=== PATIENT | male | born 1975 | race Caucasian/White ===

== ENCOUNTER 2018-03-22 19:26 | Inpatient (IN) | payer MEDICARE ==
[2018-03-22 19:40] VITALS: BMI 34.9
--- NOTE | 2018-03-22 22:05 | CP.PCM.HP ---
History of Present Illness - History of Present Illness History of Present Illness: PMD: None Chief Complaint: Abnormal vision The patient was seen and examined in the rehab unit [place] [facility] [place]. HPI: The hx was obtained from the patient and after review of the medial records. This is a 43 years old obese male with hx of DM II and HTN who was admitted at the [facility] on 03/19/18 with double and blurring of vision with diagnosed with Acute CVA. He is transferred here at the [facility] for Continued care and Rehabilitation. He referred no weakness. He still some double vision. No headache, dizziness, nausea, vomits, chest pain nor palpitations. No diarrhea. PMH: HTN; HLD; Obesity; DM II PSH: States No surgeries SH: No illegal drug use; Live alone on 1st floor; Occasional Alcohol; Current same day smoker; Partime employment FH: Significant for Diabetes Allergies: KNDA Medication: Reviewed Present on Admission - Present on Admission Any Indicators Present on Admission: No History of DVT/PE: No History of Uncontrolled Diabetes: No Urinary Catheter: No Decubitus Ulcer Present: No Review of Systems - Constitutional Constitutional: absent: Anorexia, Chills, Fever, Headache - EENT Eyes: Blurred Vision, Diplopia, Requires Corrective Lenses Ears: Ear Discharge, Tinnitus Nose/Mouth/Throat: Epistaxis, Nasal Congestion, Nasal Discharge - Cardiovascular Cardiovascular: absent: Chest Pain, Dyspnea, Edema, Orthopnea - Respiratory Respiratory: absent: Cough, Dyspnea, Wheezing, Stridor - Gastrointestinal Gastrointestinal: absent: Abdominal Pain, Constipation, Diarrhea - Genitourinary Genitourinary: absent: Dysuria, Flank Pain, Urinary Frequency - Musculoskeletal Musculoskeletal: absent: Arthralgias, Muscle Cramps, Myalgias - Integumentary Integumentary: absent: Pruritus, Rash, Skin Ulcer, Sores, Striae, Swelling - Neurological Neurological: Focal Weakness. absent: Confusion, Dizziness, Numbness - Psychiatric Psychiatric: absent: Anxiety, Depression, Panic Attacks - Endocrine Endocrine: absent: Palpitations, Polydipsia, Polyphagia, Polyuria - Hematologic/Lymphatic Hematologic: absent: Easy Bleeding, Easy Bruising Past Patient History - Past Medical History & Family History Past Medical History?: Yes - Past Social History Smoking Status: Light Smoker < 10 Cigarettes Daily Chewing Tobacco Use: No Cigar Use: No Alcohol: Social Home Situation {Lives}: Alone - CARDIAC Hx Cardiac Disorders: Yes Hx Hypercholesterolemia: Yes Hx Hypertension: Yes Other/Comment: - Hyperlipidemia - PULMONARY Hx Respiratory Disorders: No - NEUROLOGICAL Hx Neurological Disorder: Yes HX Cerebrovascular Accident: Yes (Diagnosed 03/20/2018) - HEENT Hx HEENT Problems: Yes Other/Comment: - oculomotor nerve palsy - RENAL Hx Chronic Kidney Disease: No - ENDOCRINE/METABOLIC Hx Diabetes Mellitus Type 2: Yes - HEMATOLOGICAL/ONCOLOGICAL Hx Blood Disorders: No - INTEGUMENTARY Hx Dermatological Problems: No - MUSCULOSKELETAL/RHEUMATOLOGICAL Hx Musculoskeletal Disorders: No - GASTROINTESTINAL Hx Gastrointestinal Disorders: No - GENITOURINARY/GYNECOLOGICAL Hx Genitourinary Disorders: No - PSYCHIATRIC Hx Psychophysiologic Disorder: No - SURGICAL HISTORY Hx Surgeries: No - ANESTHESIA Hx Anesthesia: No Meds Allergies/Adverse Reactions: Allergies Allergy/AdvReac Type Severity Reaction Status Date / Time No Known Allergies Allergy Verified 03/22/18 19:40 Physical Exam - Constitutional Appears: No Acute Distress - Head Exam Head Exam: ATRAUMATIC, NORMAL INSPECTION, NORMOCEPHALIC - Eye Exam Eye Exam: EOMI Pupil Exam: NORMAL ACCOMODATION Additional comments: Right 6th nerve Palsy - ENT Exam ENT Exam: Mucous Membranes Moist, Normal Exam, Normal External Ear Exam - Neck Exam Neck exam: Positive for: Full Rom, Normal Inspection. Negative for: Lymphadenopathy, Tenderness - Respiratory Exam Respiratory Exam: Clear to Auscultation Bilateral. absent: Rales, Rhonchi, Wheezes - Cardiovascular Exam Cardiovascular Exam: REGULAR RHYTHM, RRR, +S1, +S2. absent: Gallop - GI/Abdominal Exam GI & Abdominal Exam: Normal Bowel Sounds, Soft. absent: Mass, Organomegaly, Tenderness - Rectal Exam Rectal Exam: Deferred - Extremities Exam Extremities exam: Positive for: full ROM, normal inspection. Negative for: calf tenderness, pedal edema - Back Exam Back exam: NORMAL INSPECTION. absent: CVA tenderness (L), CVA tenderness (R) - Neurological Exam Neurological exam: Alert, Oriented x3, Reflexes Normal Additional comments: 6th nerve Palsy - Psychiatric Exam Psychiatric exam: Normal Affect, Normal Mood - Skin Skin Exam: Dry, Normal Color, Warm Results - Labs Labs: Laboratory Results - last 24 hr 03/22/18 21:22 POC Glucose (mg/dL) 165 H HIV- Non reactive Cholesterol- 273 LDL 188 - Imaging and Cardiology MRI - head Status: Report reviewed by me Additional comment: 03/20/18 Acute left Thalamic/Midbrain lacunar infarct. Non specific white matter T2 hyperintensities MRA Head Additional comment: 03/20/18 No demonstration of large vessel occlusion, high grade stenosis of large aneurysm. Question of mild right P2 segment narrowing. Assessment & Plan - Assessment and Plan (Free Text) Plan: 43 years old obese male with hx of DM II and HTN who was admitted at the [facility] on 03/19/18 with double and blurring of vision with diagnosed with Acute CVA. He is transferred here at the [facility] for Continued care and Rehabilitation. He referred no weakness. He still some double and blurring vision. #. Acute CVA with sixth nerve Palsy - Consult Dr Nowak the Pattern Storage Clerk - OT/PT - ASA - Atorvastatin #. DM II with Hyperglycemia - HbA1c - 13.1 on 03/22/18 - Levemir 12units Q12Hrs - Lispro Insulin sliding scale according to Accucheck ACHS - Lisinopril #. HLD - Atorvastatin #. DVT prophylaxis with Lovenox #. Code Status: Full - Date & Time Date: 03/22/18 Time: 22:05
[2018-03-22] MEDS: Insulin Detemir 100 Units/ml Inj SC SCH (22:27)
[2018-03-23 06:31] LABS: PROTHROMBIN TIME 11.6 Seconds (9.8-13.1)
[2018-03-23 06:33] LABS: BASO % 0.8 % (0.0-2.0); EOS # 0.1 K/uL (0.0-0.7); EOS % 1.3 % (0.0-4.0); HEMOGLOBIN 13.6 g/dL (12.0-18.0); LYMPH # 2.6 K/uL (1.0-4.3); MEAN CELL VOLUME 83.1 fl (80.0-94.0); MEAN CORPUSCULAR HEMOGLOBIN 26.5 pg (27.0-31.0); MEAN CORPUSCULAR HGB CONC 31.9 g/dL (33.0-37.0); MEAN PLATELET VOLUME 7.6 fl (7.2-11.7); MONO # 0.3 K/uL (0.0-0.8); MONO % 5.7 % (0.0-10.0); NEUT # 2.9 K/uL (1.8-7.0); NEUT % 49.2 % (50.0-75.0); NRBC % 0.2 % (0.0-0.0); PARTIAL THROMBOPLASTIN TIME 37.6 Seconds (25.6-37.1); RBC 5.12 Mil/uL (4.40-5.90); RED CELL DISTRIBUTION WIDTH 13.6 % (11.5-14.5); WHITE BLOOD COUNT 5.9 K/uL (4.8-10.8)
[2018-03-23 06:48] LABS: BLOOD UREA NITROGEN 8 mg/dl (9-20); CALCIUM 9.8 mg/dL (8.4-10.2); GFR NON-AFRICAN AMERICAN > 60
[2018-03-23] MEDS: Insulin Lispro (humaLOG) 100 Units/ml Inj SC SCH ×4 (07:11→21:27)
[2018-03-23] MEDS: Insulin Detemir 100 Units/ml Inj SC SCH ×2 (09:08→21:53)
[2018-03-23] MEDS: Enoxaparin 40 mg Syringe SC SCH (12:51)
--- NOTE | 2018-03-23 17:41 | PCM.OPOC ---
Physiatry Overall Plan of Care - Overall Plan of Care Estimated Length of Stay in Weeks: 2 Rehab Impairment: Mobility, Gait, Cognition, Balance, Coordination Etiologic Diagnosis: Cerebrovascular Accident Rehab/Medical Prognosis: Fair - Anticipated Interventions Physical Therapy:: Yes Occupational Therapy:: Yes Speech Therapy:: Yes Recreational Therapy:: Yes - Therapy Goals Bed Mobility: Supervision Ambulation: Supervision Functional Positional Changes:: Supervision - Discharge Plan Identification of Barriers to Discharge: Home Situation Discharge Destination: Home
--- NOTE | 2018-03-23 17:44 | CP.PCM.CON ---
History of Present Illness - History of Present Illness History of Present Illness: Dr Nowak PMR consultation on Chris Oneill, born 1975 who has been admitted to [facility] for acute inpatient rehabilitation following a left CVA with gait disorder and dizziness and headache. It had been present for a couple of weeks prior to final going to the ER at [facility] [place]. Review of Systems - Constitutional Constitutional: absent: Chills, Excessive Sweating - EENT Eyes: Blurred Vision, Change in Vision Ears: absent: Ear Discharge, Ear Pain Nose/Mouth/Throat: absent: Nasal Congestion - Cardiovascular Cardiovascular: absent: Chest Pain, Dyspnea - Respiratory Respiratory: absent: Dyspnea - Gastrointestinal Gastrointestinal: absent: Belching, Constipation - Genitourinary Genitourinary: absent: Difficulty Urinating - Musculoskeletal Musculoskeletal: absent: Arthralgias - Integumentary Integumentary: absent: Bleeding Lesions - Neurological Neurological: absent: Abnormal Hearing, Abnormal Movements - Psychiatric Psychiatric: Depression. absent: Anxiety Past Patient History - Past Medical History & Family History Past Medical History?: Yes - Past Social History Smoking Status: Light Smoker < 10 Cigarettes Daily Chewing Tobacco Use: No Cigar Use: No Alcohol: Social Home Situation {Lives}: Alone - CARDIAC Hx Cardiac Disorders: Yes Hx Hypercholesterolemia: Yes Hx Hypertension: Yes Other/Comment: - Hyperlipidemia - PULMONARY Hx Respiratory Disorders: No - NEUROLOGICAL Hx Neurological Disorder: Yes HX Cerebrovascular Accident: Yes (Diagnosed 03/20/2018) - HEENT Hx HEENT Problems: Yes Other/Comment: - oculomotor nerve palsy - RENAL Hx Chronic Kidney Disease: No - ENDOCRINE/METABOLIC Hx Diabetes Mellitus Type 2: Yes - HEMATOLOGICAL/ONCOLOGICAL Hx Blood Disorders: No - INTEGUMENTARY Hx Dermatological Problems: No - MUSCULOSKELETAL/RHEUMATOLOGICAL Hx Musculoskeletal Disorders: No - GASTROINTESTINAL Hx Gastrointestinal Disorders: No - GENITOURINARY/GYNECOLOGICAL Hx Genitourinary Disorders: No - PSYCHIATRIC Hx Psychophysiologic Disorder: No - SURGICAL HISTORY Hx Surgeries: No - ANESTHESIA Hx Anesthesia: No Meds Allergies/Adverse Reactions: Allergies Allergy/AdvReac Type Severity Reaction Status Date / Time No Known Allergies Allergy Verified 03/22/18 19:40 - Medications Medications: Current Medications Aspirin (Aspirin Chewable) 81 mg PO DAILY [facility] Last Admin: 03/23/18 09:05 Dose: 81 mg Atorvastatin Calcium (Lipitor) 80 mg PO [facility] Enoxaparin Sodium (Lovenox) 40 mg SC DAILY [facility]; Protocol Last Admin: 03/23/18 12:51 Dose: 40 mg Insulin Detemir (Levemir) 12 units SC Q12 [facility] Last Admin: 03/23/18 09:08 Dose: 12 units Insulin Human Lispro (Humalog) 0 units SC ACHS [facility]; Protocol Last Admin: 03/23/18 16:13 Dose: 1 unit Lisinopril (Zestril) 2.5 mg PO DAILY [facility] Last Admin: 03/23/18 09:05 Dose: 2.5 mg Metformin HCl (Glucophage) 500 mg PO ACBD [facility] Last Admin: 03/23/18 16:11 Dose: 500 mg Physical Exam - Constitutional Appears: No Acute Distress, Other (not very compliant with my examination now) - Head Exam Head Exam: NORMOCEPHALIC - ENT Exam ENT Exam: Mucous Membranes Moist - Respiratory Exam Respiratory Exam: NORMAL BREATHING PATTERN. absent: Respiratory Distress - Cardiovascular Exam Cardiovascular Exam: REGULAR RHYTHM - GI/Abdominal Exam GI & Abdominal Exam: absent: Firm - Extremities Exam Extremities exam: Negative for: calf tenderness - Neurological Exam Neurological exam: Alert, Oriented x3 - Psychiatric Exam Psychiatric exam: Flat Affect - Skin Skin Exam: Warm Results - Vital Signs Recent Vital Signs: Last Vital Signs Temp 97.7 F 03/22/18 19:30 Pulse 88 03/23/18 09:05 Resp 20 03/22/18 20:30 BP 120/80 03/23/18 09:05 Pulse Ox 97 03/23/18 08:43 - Labs Result Diagrams: 03/23/18 05:20 03/23/18 05:20 Labs: Laboratory Results - last 24 hr 03/22/18 03/23/18 03/23/18 21:22 05:20 05:20 WBC 5.9 RBC 5.12 Hgb 13.6 Hct 42.6 MCV 83.1 MCH 26.5 L MCHC 31.9 L RDW 13.6 Plt Count 267 MPV 7.6 Neut % (Auto) 49.2 L Lymph % (Auto) 43.0 H [place] % (Auto) 5.7 Eos % (Auto) 1.3 Baso % (Auto) 0.8 Neut # (Auto) 2.9 Lymph # (Auto) 2.6 [place] # (Auto) 0.3 Eos # (Auto) 0.1 Baso # (Auto) 0.0 PT 11.6 INR 1.0 APTT 37.6 H Sodium Potassium Chloride Carbon Dioxide Anion Gap BUN Creatinine Est GFR ( Amer) Est GFR (Non-Af Amer) POC Glucose (mg/dL) 165 H Random Glucose Calcium 03/23/18 03/23/18 03/23/18 05:20 06:16 12:30 WBC RBC Hgb Hct MCV MCH MCHC RDW Plt Count MPV Neut % (Auto) Lymph % (Auto) [place] % (Auto) Eos % (Auto) Baso % (Auto) Neut # (Auto) Lymph # (Auto) [place] # (Auto) Eos # (Auto) Baso # (Auto) PT INR APTT Sodium 140 Potassium 4.3 Chloride 106 Carbon Dioxide 26 Anion Gap 12 BUN 8 L Creatinine 0.8 Est GFR ( Amer) > 60 Est GFR (Non-Af Amer) > 60 POC Glucose (mg/dL) 153 H 216 H Random Glucose 165 H Calcium 9.8 03/23/18 16:00 WBC RBC Hgb Hct MCV MCH MCHC RDW Plt Count MPV Neut % (Auto) Lymph % (Auto) [place] % (Auto) Eos % (Auto) Baso % (Auto) Neut # (Auto) Lymph # (Auto) [place] # (Auto) Eos # (Auto) Baso # (Auto) PT INR APTT Sodium Potassium Chloride Carbon Dioxide Anion Gap BUN Creatinine Est GFR ( Amer) Est GFR (Non-Af Amer) POC Glucose (mg/dL) 154 H Random Glucose Calcium Assessment & Plan - Assessment and Plan (Free Text) Assessment: PT/OT to continue to help increase functional independence Team conference for d/c planning Pain: controlled Vascular: no evidence of DVT GI: No evidence of constipation or diarrhea Patient is an excellent acute rehabilitation candidate and will have focused PT, OT and recreational therapy to help facilitate a safe and appropriate d/c plan
[2018-03-23] MEDS ORDERED: Insulin Detemir 100 Units/ml Inj SC SCH (22:00)
[2018-03-24] MEDS: Insulin Lispro (humaLOG) 100 Units/ml Inj SC SCH ×4 (06:35→21:19)
[2018-03-24] MEDS: Insulin Detemir 100 Units/ml Inj SC SCH ×2 (08:50→21:15)
[2018-03-24] MEDS: Enoxaparin 40 mg Syringe SC SCH (08:50)
--- NOTE | 2018-03-24 09:14 | CP.PCM.CON ---
History of Present Illness - History of Present Illness History of Present Illness: Podiatry Consult Note for Dr. Skaggs 43 yo male patient, with PMHx of DM, HTN, and CVA, seen and evaluated for painful mycotic toenails. Patient is resting comfortably in bed and in NAD. Patient states that they are painful when he walks and he is unable to cut them himself due to their thickness and recent stroke. Patient denies any other pedal complaints at this time. Denies N/V/F/SOB/CP. PMHx: DM, HTN, CVA PSHx: denies Social: Denies tobacco and illicit drug use ALL: NKDA Review of Systems - Review of Systems Review of Systems: As per HPI Past Patient History - Past Medical History & Family History Past Medical History?: Yes - Past Social History Smoking Status: Light Smoker < 10 Cigarettes Daily Chewing Tobacco Use: No Cigar Use: No Alcohol: Social Home Situation {Lives}: Alone - CARDIAC Hx Cardiac Disorders: Yes Hx Hypercholesterolemia: Yes Hx Hypertension: Yes Other/Comment: - Hyperlipidemia - PULMONARY Hx Respiratory Disorders: No - NEUROLOGICAL Hx Neurological Disorder: Yes HX Cerebrovascular Accident: Yes (Diagnosed 03/20/2018) - HEENT Hx HEENT Problems: Yes Other/Comment: - oculomotor nerve palsy - RENAL Hx Chronic Kidney Disease: No - ENDOCRINE/METABOLIC Hx Diabetes Mellitus Type 2: Yes - HEMATOLOGICAL/ONCOLOGICAL Hx Blood Disorders: No - INTEGUMENTARY Hx Dermatological Problems: No - MUSCULOSKELETAL/RHEUMATOLOGICAL Hx Musculoskeletal Disorders: No - GASTROINTESTINAL Hx Gastrointestinal Disorders: No - GENITOURINARY/GYNECOLOGICAL Hx Genitourinary Disorders: No - PSYCHIATRIC Hx Psychophysiologic Disorder: No - SURGICAL HISTORY Hx Surgeries: No - ANESTHESIA Hx Anesthesia: No Meds Allergies/Adverse Reactions: Allergies Allergy/AdvReac Type Severity Reaction Status Date / Time No Known Allergies Allergy Verified 03/22/18 19:40 - Medications Medications: Current Medications Aspirin (Aspirin Chewable) 81 mg PO DAILY [facility] Last Admin: 03/24/18 08:50 Dose: 81 mg Atorvastatin Calcium (Lipitor) 80 mg PO HS [facility] Last Admin: 03/23/18 21:35 Dose: 80 mg Enoxaparin Sodium (Lovenox) 40 mg SC DAILY [facility]; Protocol Last Admin: 03/24/18 08:50 Dose: 40 mg Insulin Detemir (Levemir) 12 units SC Q12 [facility] Last Admin: 03/24/18 08:50 Dose: 12 units Insulin Human Lispro (Humalog) 0 units SC ACHS [facility]; Protocol Last Admin: 03/24/18 06:35 Dose: Not Given Lisinopril (Zestril) 2.5 mg PO DAILY [facility] Last Admin: 03/24/18 08:50 Dose: 2.5 mg Metformin HCl (Glucophage) 500 mg PO ACBD [facility] Last Admin: 03/24/18 07:11 Dose: 500 mg Physical Exam - Constitutional Appears: Non-toxic, No Acute Distress - ENT Exam ENT Exam: Mucous Membranes Moist - Extremities Exam Additional comments: Vascular: DP/PT 1/4, CFT < 3 seconds, TG warm to warm, no edema present Ortho: MMT 5/5, hammertoe deformity L digits 1-5 Neuro: Gross sensation intact, protective sensation diminished Derm: Elongated, dystrophic, mycotic nails x10. No open lesions, no erythema, no clinical signs of infection - Neurological Exam Neurological exam: Alert, Oriented x3 - Psychiatric Exam Psychiatric exam: Normal Affect, Normal Mood Results - Vital Signs Recent Vital Signs: Last Vital Signs Temp 97.8 F 03/24/18 07:40 Pulse 89 03/24/18 08:50 Resp 20 03/24/18 07:40 BP 126/93 H 03/24/18 08:50 Pulse Ox 95 03/24/18 07:40 - Labs Result Diagrams: 03/23/18 05:20 03/23/18 05:20 Labs: Laboratory Results - last 24 hr 03/23/18 03/23/18 03/23/18 12:30 16:00 21:27 POC Glucose (mg/dL) 216 H 154 H 150 H 03/24/18 06:35 POC Glucose (mg/dL) 146 H Assessment & Plan - Assessment and Plan (Free Text) Assessment: 43 yo male patient, with PMHx of DM and CVA, seen and evaluated for painful mycotic toenails. Plan: Patient seen and evaluated Discussed with Dr. Sharifa Barnett, VSS Patients nails debrided x10 with a large nail nipper without incident Discussed with patient the importance of diabetic foot risk assessments and to follow up with Dr. Skaggs with any podiatric concerns as an outpatient Podiatry to sign off at this time, please reconsult as needed Thank you for the consult - Date & Time Date: 03/24/18 Time: 09:20
[2018-03-25] MEDS: Insulin Lispro (humaLOG) 100 Units/ml Inj SC SCH ×4 (06:43→22:11)
[2018-03-25] MEDS: Insulin Detemir 100 Units/ml Inj SC SCH ×2 (09:07→22:06)
[2018-03-25] MEDS: Enoxaparin 40 mg Syringe SC SCH (09:08)
[2018-03-26 06:34] LABS: HEMOGLOBIN 13.4 g/dL (12.0-18.0); MEAN CELL VOLUME 82.2 fl (80.0-94.0); MEAN CORPUSCULAR HEMOGLOBIN 26.1 pg (27.0-31.0); MEAN CORPUSCULAR HGB CONC 31.8 g/dL (33.0-37.0); RBC 5.13 Mil/uL (4.40-5.90); RED CELL DISTRIBUTION WIDTH 13.4 % (11.5-14.5); WHITE BLOOD COUNT 7.4 K/uL (4.8-10.8)
[2018-03-26 06:47] LABS: BLOOD UREA NITROGEN 11 mg/dl (9-20); CALCIUM 9.5 mg/dL (8.4-10.2); GFR NON-AFRICAN AMERICAN > 60
[2018-03-26] MEDS: Insulin Lispro (humaLOG) 100 Units/ml Inj SC SCH ×4 (07:44→21:00)
[2018-03-26] MEDS: Enoxaparin 40 mg Syringe SC SCH (08:56)
[2018-03-26] MEDS: Insulin Detemir 100 Units/ml Inj SC SCH ×2 (08:57→20:59)
--- NOTE | 2018-03-26 09:42 | CP.PCM.PN ---
Subjective - Date & Time of Evaluation Date of Evaluation: 03/26/18 Time of Evaluation: 09:42 - Subjective Subjective: complains - still with blurry vision Objective - Vital Signs/Intake and Output Vital Signs (last 24 hours): Temp Pulse Resp BP Pulse Ox 98.1 F 83 18 120/84 100 03/26/18 09:09 03/26/18 09:09 03/26/18 09:09 03/26/18 09:09 03/26/18 09:09 - Medications Medications: Current Medications Aspirin (Aspirin Chewable) 81 mg PO DAILY [facility] Last Admin: 03/26/18 08:52 Dose: 81 mg Atorvastatin Calcium (Lipitor) 80 mg PO HS [facility] Last Admin: 03/25/18 22:01 Dose: 80 mg Enoxaparin Sodium (Lovenox) 40 mg SC DAILY [facility]; Protocol Last Admin: 03/26/18 08:56 Dose: 40 mg Insulin Detemir (Levemir) 12 units SC Q12 [facility] Last Admin: 03/26/18 08:57 Dose: 12 units Insulin Human Lispro (Humalog) 0 units SC ACHS [facility]; Protocol Last Admin: 03/26/18 07:44 Dose: Not Given Lisinopril (Zestril) 2.5 mg PO DAILY [facility] Last Admin: 03/26/18 08:56 Dose: 2.5 mg Metformin HCl (Glucophage) 500 mg PO ACBD [facility] Last Admin: 03/26/18 08:52 Dose: 500 mg - Labs Labs: 03/26/18 05:25 03/26/18 05:25 PT 11.6 Seconds (9.8-13.1) 03/23/18 05:20 INR 1.0 03/23/18 05:20 APTT 37.6 Seconds (25.6-37.1) H 03/23/18 05:20 - Constitutional Appears: Well, Non-toxic, No Acute Distress - Head Exam Head Exam: NORMAL INSPECTION - Eye Exam Eye Exam: EOMI, Normal appearance - ENT Exam ENT Exam: Mucous Membranes Moist - Respiratory Exam Respiratory Exam: Clear to Ausculation Bilateral, NORMAL BREATHING PATTERN - Cardiovascular Exam Cardiovascular Exam: REGULAR RHYTHM, +S1, +S2 - Extremities Exam Additional comments: on wheel chair - Neurological Exam Neurological Exam: Alert, Awake, Oriented x3 Assessment and Plan - Assessment and Plan (Free Text) Assessment: 43 years old obese male with hx of DM II and HTN who was admitted at the [facility] on 03/19/18 with double and blurring of vision with diagnosed with Acute CVA. He is transferred here at the [facility] for Continued care and Rehabilitation. He referred no weakness. He still some double and blurring vision. #. Acute CVA with sixth nerve Palsy - Consult Dr Nowak the Post Acute Care Nurse - OT/PT - ASA - Atorvastatin #. DM II with Hyperglycemia - HbA1c - 13.1 on 03/22/18 - Levemir 12units Q12Hrs - Lispro Insulin sliding scale according to Accucheck ACHS - Lisinopril #. HLD - Atorvastatin #. DVT prophylaxis with Lovenox
[2018-03-27] MEDS: Insulin Lispro (humaLOG) 100 Units/ml Inj SC SCH ×4 (08:22→21:03)
[2018-03-27] MEDS: Enoxaparin 40 mg Syringe SC SCH (08:22)
[2018-03-27] MEDS: Insulin Detemir 100 Units/ml Inj SC SCH ×2 (08:24→21:09)
--- NOTE | 2018-03-27 13:11 | PCM.PSYTMC ---
Acute Rehab Team Conference - - Vital Signs: Vital Signs (Last 8 Hours): Vital Signs 03/27/18 03/27/18 08:23 08:57 Temperature 98 F Pulse Rate 78 72 Respiratory 20 Rate Blood Pressure 144/78 144/80 O2 Sat by Pulse 98 Oximetry Pain: 0 - Toileting: Toileting: Contact Guard - Bladder Management: Bladder Pattern: Normal Voiding Method: Toilet Bladder Management: Contact Guard - Transfers: Transfers: Contact Guard - Provider: Registered Nurse:: Carmine Robles Physical Therapy - Bed Mobility Bed Mobility: Contact Guard - Transfers Wheelchair to Mat: Contact Guard Sit to Stand: Contact Guard - Ambulation Level of Assistance: Contact Guard, Minimal Assistance Distance (ft.): 150 Assistive Devices: N/A - Standing Balance Static Stand: Contact Guard Assist - Pain Pain (assessed during therapy session): 0 - Insight/Carryover Insight/Carryover: Good - Patient/Family Education Comment: CVA recovery, safety, POC - Assessment/Plan Assessment: Pt currently requires CGA for bed mobility, CGA for transfers, CGA/min A for ambulation, and CGA for stair negotiation. Pt with occasional LOB to R side - Goals Timeframe: 2 weeks Goals: Sit < > supine mod I. Sit < > stand mod I. Pt will ambulate 300 ft mod I without AD. Pt will ascend/descend flight of stairs mod I - Provider Physical Therapist:: Sanam Brand License Number:: [id number] Occupational Therapy - Arousal/Attention/Orientation Level of Consciousness: Awake, Alert, Forgetful Patient Orientation: Person, Place, Time - ADL/IADL Self Feeding: Set-up Help Grooming: Set-up Help Bathing-Upper Ext: Supervision Bathing-Lower Ext: Supervision Dressing-Upper Ext: Supervision Dressing-Lower Ext: Supervision - Sitting Balance Static Sitting: Supervision Dynamic Sitting: Requires supervision - Transfers Wheelchair to Bed Transfers: Supervision Toilet Transfers: Supervision - Wheelchair Management Level of Assistance: Independent Distance (ft.): 150 - Upper Extremity Status Right Upper Extremity Comment: WFL Left Upper Extremity Comment: WFL - Pain Pain (assessed during therapy session): 0 - Insight/Carryover Insight/Carryover: Fair - Patient/Family Education Comment: CVA recovey, use of callbell, therapy schedule, - Assessment/Plan Assessment: Patient is a 43 yo male presenting to acute rehab s/p acute CVA. Patient presenting with impaired activity tolerance, impaired dynamic standing balance/unsteadiness on feet/lack of coordination, impaired knowledge of compensatory/adaptive techniques, impaired safety awareness impacting pt's ability to complete his ADL routine safely and effectively. patient currently able to complete UB ADLs with supervision, lb ADLS with supervision , transfers/mobility with supervision with intermittent vcs for safetly. recommend cont skilled OT services 5-6x/week as per plan of care. - Goals Timeframe: 1 week - Provider Occupational Therapist:: Nitza Kamara License Number: [id number] Recreational Therapy - Participation Participation: Participates in Individual and/or Group Sessions - Attendance Attendance: 3-5 times per week - Activities Leisure Activities: Cards and Games - Socialization Level of Socialization: Initiates/interacts freely with care givers and peer - Diversional Time Diversional Time: television, listening to music - Assessment Assessment/Plan: Pt is agreeable to participate in recreation therapy sessions following encouragement. Pt was oriented to tapple task and presented with decrease recalling facts on demand and pt reported visual impairments with the R eye. Pt requires verbal cues for redirection and requires education 2' poor insight. Pt will benefit from leisure education and stroke education throughout stay on unit. Will continue to encourage. Problems Currently Limiting Participation: decrease leisure awareness level, visual impairments as pt reports visual cut with vision in R eye Goals and Time Frame: decrease leisure awareness level, visual impairments as pt reports visual cut with vision in R eye - Provider Therapist: Jagruti Mora Nutrition - Current Diet Current Diet/Supplement/Feedings: Moderate consistent CHO heart healthy diet - Appetite Percent Meal Consumed: 75-100% - Assessment/Goals/Time Frame Assessments/Goals/Time Frame: Pt at moderate nutritional risk. goals: 1. Pt to consume 75-100% of meals. 2. Blood glucoses to be between 70-180 mg/dl. Follow-up due on 03/30/2018 - Provider Provider: Khadijah Rolon Case Management - Psychosocial Assessment Support Systems: Blanca Engel (julest) - Psychological Interventions/Needs: Patient is alert and oriented x3 and able to verbalize needs. Discharge Concerns: Patient lives alone with limited support during the day. Patient/Family Meeting: CM met with patient and rehab team. Intervention/Goal/Outcome: 1. Itermittent supervision. 2. PLAN- home with VNS - refer to [facility]. 3. DME needs. 4. F/U appointments. 5. Caregiver training?. 6. continued emotional support. 7. Tentative discharge date: 04/01/18 - Discharge Plan Discharge Plan: Home with services Home Services: [facility] - Provider Provider: Isabel Young License Number: [id number] Rehabilitation Plan - Treatment Plan Treatment Plan: Physical Therapy, Occupational Therapy, Dietary, Patient/Family Education - Discharge Plan Estimated Date of Discharge: 04/02/18 Discharge to: Home
--- NOTE | 2018-03-27 13:31 | CP.PCM.PN ---
Subjective - Date & Time of Evaluation Date of Evaluation: 03/27/18 Time of Evaluation: 13:30 - Subjective Subjective: Patient seen in the room denies sob/cp not too interested in my presence and wanted me to move out of the way so he could watch TV impulsive in therapy and this was discussed in detail continue current care Objective - Vital Signs/Intake and Output Vital Signs (last 24 hours): Temp Pulse Resp BP Pulse Ox 98 F 77 20 144/80 98 03/27/18 08:57 03/27/18 08:57 03/27/18 08:57 03/27/18 08:57 03/27/18 08:57 - Medications Medications: Current Medications Aspirin (Aspirin Chewable) 81 mg PO DAILY [facility] Last Admin: 03/27/18 08:22 Dose: 81 mg Atorvastatin Calcium (Lipitor) 80 mg PO HS [facility] Last Admin: 03/26/18 21:01 Dose: 80 mg Enoxaparin Sodium (Lovenox) 40 mg SC DAILY [facility]; Protocol Last Admin: 03/27/18 08:22 Dose: 40 mg Insulin Detemir (Levemir) 12 units SC Q12 [facility] Last Admin: 03/27/18 08:24 Dose: 12 units Insulin Human Lispro (Humalog) 0 units SC ACHS [facility]; Protocol Last Admin: 03/27/18 12:28 Dose: Not Given Lisinopril (Zestril) 2.5 mg PO DAILY [facility] Last Admin: 03/27/18 08:23 Dose: 2.5 mg Metformin HCl (Glucophage) 500 mg PO ACBD [facility] Last Admin: 03/27/18 08:21 Dose: 500 mg - Labs Labs: 03/26/18 05:25 03/26/18 05:25 PT 11.6 Seconds (9.8-13.1) 03/23/18 05:20 INR 1.0 03/23/18 05:20 APTT 37.6 Seconds (25.6-37.1) H 03/23/18 05:20
[2018-03-28] MEDS: Insulin Lispro (humaLOG) 100 Units/ml Inj SC SCH ×4 (06:49→21:36)
[2018-03-28] MEDS: Insulin Detemir 100 Units/ml Inj SC SCH ×2 (09:02→21:33)
[2018-03-28] MEDS: Enoxaparin 40 mg Syringe SC SCH (09:04)
--- NOTE | 2018-03-28 18:07 | CP.PCM.PN ---
Subjective - Date & Time of Evaluation Date of Evaluation: 03/28/18 Time of Evaluation: 13:20 - Subjective Subjective: Patient seen and examined. De nied any other complaint aside from persistent blurring of vision. Objective - Vital Signs/Intake and Output Vital Signs (last 24 hours): Temp Pulse Resp BP Pulse Ox 97.3 F L 86 19 114/84 98 03/28/18 10:00 03/28/18 10:00 03/28/18 10:00 03/28/18 10:00 03/28/18 10:00 - Medications Medications: Current Medications Aspirin (Aspirin Chewable) 81 mg PO DAILY [facility] Last Admin: 03/28/18 09:02 Dose: 81 mg Atorvastatin Calcium (Lipitor) 80 mg PO HS [facility] Last Admin: 03/27/18 21:09 Dose: 80 mg Enoxaparin Sodium (Lovenox) 40 mg SC DAILY [facility]; Protocol Last Admin: 03/28/18 09:04 Dose: 40 mg Insulin Detemir (Levemir) 12 units SC Q12 [facility] Last Admin: 03/28/18 09:02 Dose: 12 units Insulin Human Lispro (Humalog) 0 units SC ACHS [facility]; Protocol Last Admin: 03/28/18 16:23 Dose: Not Given Lisinopril (Zestril) 2.5 mg PO DAILY [facility] Last Admin: 03/28/18 09:09 Dose: 2.5 mg Metformin HCl (Glucophage) 500 mg PO ACBD [facility] Last Admin: 03/28/18 16:58 Dose: 500 mg - Labs Labs: 03/26/18 05:25 03/26/18 05:25 PT 11.6 Seconds (9.8-13.1) 03/23/18 05:20 INR 1.0 03/23/18 05:20 APTT 37.6 Seconds (25.6-37.1) H 03/23/18 05:20 - Constitutional Appears: No Acute Distress - Head Exam Head Exam: ATRAUMATIC - Eye Exam Eye Exam: absent: Scleral icterus - ENT Exam ENT Exam: Mucous Membranes Moist - Neck Exam Neck Exam: absent: Meningismus - Respiratory Exam Respiratory Exam: absent: Rales, Rhonchi, Wheezes, Respiratory Distress - Cardiovascular Exam Cardiovascular Exam: REGULAR RHYTHM, +S1, +S2 - GI/Abdominal Exam GI & Abdominal Exam: Soft. absent: Tenderness - Rectal Exam Rectal Exam: Deferred - Neurological Exam Neurological Exam: Alert, Oriented x3 - Psychiatric Exam Psychiatric exam: Normal Affect - Skin Skin Exam: Dry, Intact Assessment and Plan - Assessment and Plan (Free Text) Assessment: 43 yo obese male with history of DM II and HTN was admitted at the [facility] on 03/19/18 with double and blurring of vision and was diagnosed with Acute CVA when CT scan of the head showed acute infarct on left thalamic and midbrain. He was transferred to [facility] for continued care and rehabilitation. 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 DM II BS relatively controlled Levemir 12units Q12Hrs Accucheck ACHS 3. HTN BP stable continue Lisinopril 4. DVT prophylaxis on Lovenox
[2018-03-29] MEDS: Insulin Lispro (humaLOG) 100 Units/ml Inj SC SCH ×4 (07:17→21:14)
[2018-03-29 08:10] LABS: HEMOGLOBIN 12.6 g/dL (12.0-18.0); MEAN CORPUSCULAR HGB CONC 31.3 g/dL (33.0-37.0); RBC 4.86 Mil/uL (4.40-5.90); RED CELL DISTRIBUTION WIDTH 13.5 % (11.5-14.5); WHITE BLOOD COUNT 6.2 K/uL (4.8-10.8)
[2018-03-29] MEDS: Insulin Detemir 100 Units/ml Inj SC SCH ×2 (08:20→21:14)
[2018-03-29] MEDS: Enoxaparin 40 mg Syringe SC SCH (08:20)
[2018-03-29 09:16] LABS: BLOOD UREA NITROGEN 14 mg/dl (9-20); CALCIUM 9.6 mg/dL (8.4-10.2); GFR NON-AFRICAN AMERICAN > 60
[2018-03-30] MEDS: Insulin Lispro (humaLOG) 100 Units/ml Inj SC SCH ×4 (06:30→21:00)
[2018-03-30] MEDS: Insulin Detemir 100 Units/ml Inj SC SCH ×2 (09:51→21:08)
[2018-03-30] MEDS: Enoxaparin 40 mg Syringe SC SCH (09:52)
--- NOTE | 2018-03-30 14:39 | CP.PCM.PN ---
Subjective - Date & Time of Evaluation Date of Evaluation: 03/30/18 Time of Evaluation: 14:38 - Subjective Subjective: Patient seen on way to therapy NAD no cyanosis or jaundice chatting with staff about Antony Pena. continue current care Objective - Vital Signs/Intake and Output Vital Signs (last 24 hours): Temp Pulse Resp BP Pulse Ox 97.2 F L 79 20 130/80 97 03/29/18 21:00 03/30/18 09:52 03/29/18 21:00 03/30/18 09:52 03/29/18 21:00 - Medications Medications: Current Medications Aspirin (Aspirin Chewable) 81 mg PO DAILY [facility] Last Admin: 03/30/18 09:50 Dose: 81 mg Atorvastatin Calcium (Lipitor) 80 mg PO HS [facility] Last Admin: 03/29/18 21:13 Dose: 80 mg Insulin Detemir (Levemir) 12 units SC Q12 [facility] Last Admin: 03/30/18 09:51 Dose: 12 units Insulin Human Lispro (Humalog) 0 units SC ACHS [facility]; Protocol Last Admin: 03/30/18 06:30 Dose: Not Given Lisinopril (Zestril) 2.5 mg PO DAILY [facility] Last Admin: 03/30/18 09:52 Dose: 2.5 mg Metformin HCl (Glucophage) 500 mg PO ACBD [facility] Last Admin: 03/30/18 07:30 Dose: 500 mg - Labs Labs: 03/29/18 07:50 03/29/18 07:50 PT 11.6 Seconds (9.8-13.1) 03/23/18 05:20 INR 1.0 03/23/18 05:20 APTT 37.6 Seconds (25.6-37.1) H 03/23/18 05:20
--- NOTE | 2018-03-30 17:53 | CP.PCM.PN ---
Subjective - Date & Time of Evaluation Date of Evaluation: 03/30/18 Time of Evaluation: 17:15 - Subjective Subjective: Patient seen and examined. Claimed his right leg limp had improved but having blurry vision. Objective - Vital Signs/Intake and Output Vital Signs (last 24 hours): Temp Pulse Resp BP Pulse Ox 97.2 F L 79 20 130/80 97 03/29/18 21:00 03/30/18 09:52 03/29/18 21:00 03/30/18 09:52 03/29/18 21:00 - Medications Medications: Current Medications Aspirin (Aspirin Chewable) 81 mg PO DAILY [facility] Last Admin: 03/30/18 09:50 Dose: 81 mg Atorvastatin Calcium (Lipitor) 80 mg PO HS [facility] Last Admin: 03/29/18 21:13 Dose: 80 mg Insulin Detemir (Levemir) 12 units SC Q12 [facility] Last Admin: 03/30/18 09:51 Dose: 12 units Insulin Human Lispro (Humalog) 0 units SC ACHS [facility]; Protocol Last Admin: 03/30/18 17:27 Dose: 1 unit Lisinopril (Zestril) 2.5 mg PO DAILY [facility] Last Admin: 03/30/18 09:52 Dose: 2.5 mg Metformin HCl (Glucophage) 500 mg PO ACBD [facility] Last Admin: 03/30/18 17:26 Dose: 500 mg - Labs Labs: 03/29/18 07:50 03/29/18 07:50 PT 11.6 Seconds (9.8-13.1) 03/23/18 05:20 INR 1.0 03/23/18 05:20 APTT 37.6 Seconds (25.6-37.1) H 03/23/18 05:20 - Constitutional Appears: No Acute Distress - Head Exam Head Exam: ATRAUMATIC - Eye Exam Eye Exam: absent: Scleral icterus - ENT Exam ENT Exam: Mucous Membranes Moist - Neck Exam Neck Exam: absent: Meningismus - Respiratory Exam Respiratory Exam: absent: Rales, Rhonchi, Wheezes, Respiratory Distress, Stridor - Cardiovascular Exam Cardiovascular Exam: REGULAR RHYTHM, +S1, +S2 - GI/Abdominal Exam GI & Abdominal Exam: Soft. absent: Tenderness - Rectal Exam Rectal Exam: Deferred - Neurological Exam Neurological Exam: Alert, Oriented x3 - Psychiatric Exam Psychiatric exam: Normal Affect - Skin Skin Exam: Dry, Intact Assessment and Plan - Assessment and Plan (Free Text) Assessment: 43 yo obese male with history of DM II and HTN was admitted at the [facility] on 03/19/18 with double and blurring of vision and was diagnosed with Acute CVA when CT scan of the head showed acute infarct on left thalamic and midbrain. He was transferred to [facility] for continued care and rehabilitation. 1. 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 DM II BS controlled Levemir 12units Q12Hrs Accucheck ACHS 3. HTN BP controlled continue Lisinopril 4. DVT prophylaxis on Lovenox
[2018-03-30] MEDS ORDERED: Magnesium Hydroxide Susp 30 ml UD PO PRN (21:32)
[2018-03-31] MEDS: Insulin Lispro (humaLOG) 100 Units/ml Inj SC SCH ×4 (07:30→21:00)
[2018-03-31] MEDS: Enoxaparin 40 mg Syringe SC SCH (08:53)
[2018-03-31] MEDS: Insulin Detemir 100 Units/ml Inj SC SCH ×2 (08:54→21:00)
[2018-04-01] MEDS: Enoxaparin 40 mg Syringe SC SCH (08:22)
[2018-04-01] MEDS: Insulin Lispro (humaLOG) 100 Units/ml Inj SC SCH ×4 (08:23→21:04)
[2018-04-01] MEDS: Insulin Detemir 100 Units/ml Inj SC SCH ×2 (08:24→21:04)
[2018-04-01 10:49] LABS: HEMOGLOBIN 12.8 g/dL (12.0-18.0); MEAN CELL VOLUME 81.1 fl (80.0-94.0); RBC 4.92 Mil/uL (4.40-5.90); RED CELL DISTRIBUTION WIDTH 13.3 % (11.5-14.5)
[2018-04-01 11:01] LABS: BLOOD UREA NITROGEN 14 mg/dl (9-20); CALCIUM 9.6 mg/dL (8.4-10.2); GFR NON-AFRICAN AMERICAN > 60
[2018-04-02] MEDS: Enoxaparin 40 mg Syringe SC SCH (08:49)
[2018-04-02] MEDS: Insulin Detemir 100 Units/ml Inj SC SCH (08:49)
[2018-04-02] MEDS: Insulin Lispro (humaLOG) 100 Units/ml Inj SC SCH ×4 (08:54→21:24)
--- NOTE | 2018-04-02 11:29 | CP.PCM.PN ---
Subjective - Date & Time of Evaluation Date of Evaluation: 04/02/18 Time of Evaluation: 11:30 - Subjective Subjective: Patient seen and examined bedside For discharge in AM buut wants to stay until Monday States that has not had 1 BM for 1 week Feeling better Complains of some visual problems that improve when closes one eye Objective - Vital Signs/Intake and Output Vital Signs (last 24 hours): Temp Pulse Resp BP Pulse Ox 97.7 F 92 H 20 118/87 97 04/01/18 20:00 04/02/18 09:10 04/02/18 09:10 04/02/18 09:10 04/02/18 09:10 - Medications Medications: Current Medications Aspirin (Aspirin Chewable) 81 mg PO DAILY [facility] Last Admin: 04/02/18 08:48 Dose: 81 mg Atorvastatin Calcium (Lipitor) 80 mg PO HS [facility] Last Admin: 04/01/18 21:04 Dose: 80 mg Enoxaparin Sodium (Lovenox) 40 mg SC DAILY [facility]; Protocol Last Admin: 04/02/18 08:49 Dose: 40 mg Insulin Detemir (Levemir) 12 units SC Q12 [facility] Last Admin: 04/02/18 08:49 Dose: 12 units Insulin Human Lispro (Humalog) 0 units SC ACHS [facility]; Protocol Last Admin: 04/02/18 08:54 Dose: 1 unit Lisinopril (Zestril) 2.5 mg PO DAILY [facility] Last Admin: 04/02/18 08:50 Dose: 2.5 mg Magnesium Hydroxide (Milk Of Magnesia) 30 ml PO DAILY PRN PRN Reason: Constipation Metformin HCl (Glucophage) 500 mg PO ACBD [facility] Last Admin: 04/02/18 08:49 Dose: 500 mg - Labs Labs: 04/01/18 10:30 04/01/18 10:30 PT 11.6 Seconds (9.8-13.1) 03/23/18 05:20 INR 1.0 03/23/18 05:20 APTT 37.6 Seconds (25.6-37.1) H 03/23/18 05:20 - Constitutional Appears: Non-toxic, No Acute Distress - Head Exam Head Exam: ATRAUMATIC, NORMOCEPHALIC - Eye Exam Eye Exam: EOMI, PERRL Pupil Exam: NORMAL ACCOMODATION - ENT Exam ENT Exam: Mucous Membranes Moist, Normal Exam - Neck Exam Neck Exam: Full ROM, Normal Inspection - Respiratory Exam Respiratory Exam: Clear to Ausculation Bilateral, NORMAL BREATHING PATTERN. absent: Rales, Rhonchi, Wheezes - Cardiovascular Exam Cardiovascular Exam: JVD, RRR, +S1, +S2. absent: REGULAR RHYTHM - GI/Abdominal Exam GI & Abdominal Exam: Soft, Normal Bowel Sounds. absent: Distended, Guarding, Tenderness, Rebound - Rectal Exam Rectal Exam: Deferred - Extremities Exam Extremities Exam: Full ROM, Normal Capillary Refill, Normal Inspection - Back Exam Back Exam: NORMAL INSPECTION - Neurological Exam Neurological Exam: Alert, Awake, CN II-XII Intact Neuro motor strength exam: Left Upper Extremity: 5, Right Upper Extremity: 5, Left Lower Extremity: 5, Right Lower Extremity: 5 - Psychiatric Exam Psychiatric exam: Normal Affect - Skin Skin Exam: Dry, Normal Color, Warm Assessment and Plan - Assessment and Plan (Free Text) Assessment: 43 yo obese male with history of DM II and HTN was admitted at the [facility] on 03/19/18 with double and blurring of vision and was diagnosed with Acute CVA on left thalamic and midbrain. He was transferred to [facility] Acute [facility]hab for PT. participated with PT and improved . Stable for d/c in AM . 1. 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 For d/c in AM continue ASA and Atorvastatin still with some blurred vision 2. DM II BS controlled d/c Levemir ands start Glipizide since patient does not want to be discharged on insulin Continue Metformin . Start Glipizide 10 mg PO AC Accucheck ACHS, diabetic diet , insulin coverage 3. HTN BP controlled continue Lisinopril 4. DVT prophylaxis on Lovenox 5. Constipation Start Lactulose
[2018-04-03] MEDS: Insulin Lispro (humaLOG) 100 Units/ml Inj SC SCH ×2 (06:49→12:25)
[2018-04-03] MEDS: Enoxaparin 40 mg Syringe SC SCH (08:33)
[2018-04-03 09:20] VITALS: BP 122/89; PULSE 79; RESP 19; TEMP 97.6; O2SAT 98
--- NOTE | 2018-04-03 12:01 | CP.PCM.PN ---
Subjective - Date & Time of Evaluation Date of Evaluation: 04/03/18 Time of Evaluation: 10:00 - Subjective Subjective: no acute complaints at present Objective - Vital Signs/Intake and Output Vital Signs (last 24 hours): Temp Pulse Resp BP Pulse Ox 97.6 F 79 19 122/89 98 04/03/18 09:18 04/03/18 09:18 04/03/18 09:18 04/03/18 09:18 04/03/18 09:18 - Medications Medications: Current Medications Aspirin (Aspirin Chewable) 81 mg PO DAILY [facility] Last Admin: 04/03/18 08:34 Dose: 81 mg Atorvastatin Calcium (Lipitor) 80 mg PO HS [facility] Last Admin: 04/02/18 21:12 Dose: 80 mg Enoxaparin Sodium (Lovenox) 40 mg SC DAILY [facility]; Protocol Last Admin: 04/03/18 08:33 Dose: 40 mg Glipizide (Glucotrol) 10 mg PO ACB [facility] Last Admin: 04/03/18 07:34 Dose: 10 mg Insulin Human Lispro (Humalog) 0 units SC [facility]; Protocol Last Admin: 04/03/18 06:49 Dose: Not Given Lactulose (Enulose) 20 gm PO DAILY PRN PRN Reason: Constipation Lisinopril (Zestril) 2.5 mg PO DAILY [facility] Last Admin: 04/03/18 08:35 Dose: 2.5 mg Magnesium Hydroxide (Milk Of Magnesia) 30 ml PO DAILY PRN PRN Reason: Constipation Metformin HCl (Glucophage) 500 mg PO ACBD [facility] Last Admin: 04/03/18 07:33 Dose: 500 mg - Labs Labs: 04/01/18 10:30 04/01/18 10:30 PT 11.6 Seconds (9.8-13.1) 03/23/18 05:20 INR 1.0 03/23/18 05:20 APTT 37.6 Seconds (25.6-37.1) H 03/23/18 05:20 - Head Exam Head Exam: ATRAUMATIC, NORMAL INSPECTION, NORMOCEPHALIC - Eye Exam Eye Exam: EOMI, Normal appearance, PERRL Pupil Exam: NORMAL ACCOMODATION - ENT Exam ENT Exam: Mucous Membranes Moist, Normal Exam - Neck Exam Neck Exam: Normal Inspection - Respiratory Exam Respiratory Exam: Clear to Ausculation Bilateral, NORMAL BREATHING PATTERN - Cardiovascular Exam Cardiovascular Exam: REGULAR RHYTHM - GI/Abdominal Exam GI & Abdominal Exam: Soft, Normal Bowel Sounds - Rectal Exam Rectal Exam: NORMAL INSPECTION - Exam External exam: NORMAL EXTERNAL EXAM - Extremities Exam Extremities Exam: Full ROM, Normal Capillary Refill - Back Exam Back Exam: NORMAL INSPECTION - Neurological Exam Neurological Exam: Alert, Awake Neuro motor strength exam: Left Upper Extremity: 3, Right Upper Extremity: 3, Left Lower Extremity: 3, Right Lower Extremity: 3 - Skin Skin Exam: Intact, Normal Color Assessment and Plan - Assessment and Plan (Free Text) Assessment: deconditioning, gait difficulty CVa plan for Dc today covering for Dr duran
--- NOTE | 2018-04-03 14:55 | CP.PCM.DIS ---
Provider - Provider Date of Admission: 03/22/18 19:41 Attending physician: Felton Chavez MD Time Spent in preparation of Discharge (in minutes): 30 Diagnosis - Discharge Diagnosis (1) CVA (cerebral vascular accident) Status: Acute Hospital Course - Lab Results Lab Results: Most Recent Lab Values WBC 7.0 K/uL (4.8-10.8) 04/01/18 10:30 RBC 4.92 Mil/uL (4.40-5.90) 04/01/18 10:30 Hgb 12.8 g/dL (12.0-18.0) 04/01/18 10:30 Hct 39.9 % (35.0-51.0) 04/01/18 10:30 MCV 81.1 fl (80.0-94.0) 04/01/18 10:30 MCH 26.0 pg (27.0-31.0) L 04/01/18 10:30 MCHC 32.0 g/dL (33.0-37.0) L 04/01/18 10:30 RDW 13.3 % (11.5-14.5) 04/01/18 10:30 Plt Count 290 K/uL (130-400) 04/01/18 10:30 MPV 7.6 fl (7.2-11.7) 03/23/18 05:20 Neut % (Auto) 49.2 % (50.0-75.0) L 03/23/18 05:20 Lymph % (Auto) 43.0 % (20.0-40.0) H 03/23/18 05:20 [place] % (Auto) 5.7 % (0.0-10.0) 03/23/18 05:20 Eos % (Auto) 1.3 % (0.0-4.0) 03/23/18 05:20 Baso % (Auto) 0.8 % (0.0-2.0) 03/23/18 05:20 Neut # (Auto) 2.9 K/uL (1.8-7.0) 03/23/18 05:20 Lymph # (Auto) 2.6 K/uL (1.0-4.3) 03/23/18 05:20 [place] # (Auto) 0.3 K/uL (0.0-0.8) 03/23/18 05:20 Eos # (Auto) 0.1 K/uL (0.0-0.7) 03/23/18 05:20 Baso # (Auto) 0.0 K/uL (0.0-0.2) 03/23/18 05:20 PT 11.6 Seconds (9.8-13.1) 03/23/18 05:20 INR 1.0 03/23/18 05:20 APTT 37.6 Seconds (25.6-37.1) H 03/23/18 05:20 Sodium 138 mmol/l (132-148) 04/01/18 10:30 Potassium 4.3 MMOL/L (3.6-5.0) 04/01/18 10:30 Chloride 99 mmol/L (98-107) 04/01/18 10:30 Carbon Dioxide 28 mmol/L (22-30) 04/01/18 10:30 Anion Gap 15 (10-20) 04/01/18 10:30 BUN 14 mg/dl (9-20) 04/01/18 10:30 Creatinine 0.9 mg/dl (0.8-1.5) 04/01/18 10:30 Est GFR ( Amer) > 60 04/01/18 10:30 Est GFR (Non-Af Amer) > 60 04/01/18 10:30 POC Glucose (mg/dL) 167 mg/dL (65-110) H 04/03/18 12:03 Random Glucose 244 mg/dL (75-110) H 04/01/18 10:30 Calcium 9.6 mg/dL (8.4-10.2) 04/01/18 10:30 - Hospital Course Hospital Course: 43 yo obese male with history of DM II and HTN was admitted at the [facility] on 03/19/18 with double and blurring of vision and was diagnosed with Acute CVA on left thalamic and midbrain. He was transferred to [facility] Acute Rehab for PT. participated with PT and improved . Stable for d/c today. 1. 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 For d/c today continue ASA and Atorvastatin still with some blurred vision 2. DM II BS controlled d/c Levemir ands start Glipizide since patient does not want to be discharged on insulin Continue Metformin . Start Glipizide 10 mg PO AC Accucheck ACHS, diabetic diet , insulin coverage 3. HTN BP controlled continue Lisinopril 4. DVT prophylaxis on Lovenox 5. Constipation Start Lactulose Discharge Exam - Head Exam Additional comments: GEN: WDWN, alert, cooperative HEENT: NCAT, PERRL, EOMI HEART: RRR, +S1S2, NO MRG LUNG: CTAB, NO WRR ABD: soft, NT, ND, No HSM, No masses EXT: normal pedal pulses NEURO: awake, alert SKIN: warm, dry PSYCH: normal mood, normal affect Discharge Plan - Discharge Medications Prescriptions: Aspirin [Aspirin Chewable] 81 mg PO DAILY #30 chew Atorvastatin [Lipitor] 80 mg PO HS #30 tab GlipiZIDE [Glucotrol] 10 mg PO ACB #30 tab Insulin Glargine, Recombina [Lantus] 14 unit SC Q12 #100 unit Lisinopril [Zestril] 2.5 mg PO DAILY #30 tab Metformin HCl [Glucophage] 500 mg PO ACBD #30 tablet - Follow Up Plan Condition: GOOD Disposition: HOME/ ROUTINE Instructions: Hyperglycemia, Adult, Preventing Falls
== END 2018-04-03 17:47 | disposition home health service (06) | DRG 57 ==
PROC: F07Z9ZZ Gait Training/Functional Ambulation Treatment (ICD-10-PCS; principal; 2018-03-22)
PROC: F07L6GZ Therapeutic Exercise Treatment of Musculoskeletal System - Lower Back / Lower Extremity using Aerobic Endurance and Conditioning Equipment (ICD-10-PCS; 2018-03-22)
PROC: F07 Physical Rehabilitation and Diagnostic Audiology, Rehabilitation, Motor Treatment (ICD-10-PCS; 2018-03-22)
DX: I69.398 Other sequelae of cerebral infarction (principal); H49.20 Sixth [abducent] nerve palsy, unspecified eye; E11.65 Type 2 diabetes mellitus with hyperglycemia; E66.9 Obesity, unspecified; Z68.35 Body mass index [BMI] 35.0-35.9, adult; E78.00 Pure hypercholesterolemia, unspecified; E78.5 Hyperlipidemia, unspecified; I10 Essential (primary) hypertension; F17.210 Nicotine dependence, cigarettes, uncomplicated; B35.1 Tinea unguium; M20.42 Other hammer toe(s) (acquired), left foot; L60.3 Nail dystrophy; K59.00 Constipation, unspecified; R26.9 Unspecified abnormalities of gait and mobility